=== PATIENT | female | born 1965 | race Caucasian/White ===

== ENCOUNTER 2017-03-10 12:50 | Emergency (ER) | payer BC, OTHER ==
[2017-03-10] MEDS ORDERED: MAG HYDROX/AL HYDROX/SIMETH 30 ML, HYOSCYAMINE ELIXIR 10 ML, CIMETIDINE HCL 300 MG, LID... PO STA ×4 (13:35)
[2017-03-10] MEDS ORDERED: FAMOTIDINE 20 MG/2 ML VIAL IV STA (13:38)
--- NOTE | 2017-03-10 13:43 | ED ---
General Adult HPI - General Chief complaint: Abdominal Pain Stated complaint: Chest Pain X's 3 days Time Seen by Provider: 03/10/17 13:24 Source: patient, RN notes reviewed, old records reviewed Mode of arrival: wheelchair Limitations: no limitations - History of Present Illness Initial comments: 51-year-old female with past medical history of gastric reflux presents to three -day history of abdominal pain and chest pain. Patient's pain began morning. She was arrest. Started as a burning sensation. Radiated to her back and shoulder blade. She has had these symptoms in the past, she is taken Tums and Pepcid for these symptoms. According to the patient she has stress test 3-4 years ago which was normal. Symptoms have persisted over the last 3 days prompting ER evaluation. She does have family history of cardiac disease in her mother at the age of 70. She is a nonsmoker. No history diabetes or hypertension. No history of hypercholesterolemia. patient's pain has improved at home with Pepcid. No cough. No shortness of breath. No lightheadedness or diaphoresis. Patient's pain has been constant for 3 days. - Related Data Home Medications Medication Instructions Recorded Confirmed [id number] 2 tab PO Q4HR PRN 03/10/17 03/10/17 [Excedrin] Famotidine [Pepcid AC] 10 mg PO DAILY PRN 03/10/17 03/10/17 Previous Rx's Medication Instructions Recorded Omeprazole [PriLOSEC] 20 mg PO AC-BRKFST #30 cap 03/10/17 Allergies Allergy/AdvReac Type Severity Reaction Status Date / Time Penicillins Allergy Rash/Hives Verified 03/10/17 13:56 Review of Systems ROS Statement: Those systems with pertinent positive or pertinent negative responses have been documented in the HPI. ROS Other: All systems not noted in ROS Statement are negative. Past Medical History Past Medical History: No Reported History, GERD/Reflux History of Any Multi-Drug Resistant Organisms: None Reported Past Surgical History: Orthopedic Surgery Additional Past Surgical History / Comment(s): rotator cudd surg., eye surg. as a child Past Anesthesia/Blood Transfusion Reactions: No Reported Reaction Past Psychological History: No Psychological Hx Reported Smoking Status: Former smoker Past Alcohol Use History: Occasional Past Drug Use History: None Reported General Exam Limitations: no limitations General appearance: alert, in no apparent distress Head exam: Present: atraumatic, normocephalic Eye exam: Present: normal appearance, PERRL ENT exam: Present: normal exam, mucous membranes moist Neck exam: Present: normal inspection. Absent: tenderness, meningismus Respiratory exam: Present: normal lung sounds bilaterally. Absent: respiratory distress Cardiovascular Exam: Present: regular rate, normal rhythm GI/Abdominal exam: Present: soft. Absent: distended, tenderness Extremities exam: Present: normal inspection, normal capillary refill. Absent: pedal edema Back exam: Present: normal inspection Neurological exam: Present: alert, oriented X3 Psychiatric exam: Present: normal affect, normal mood Skin exam: Present: warm, dry, intact. Absent: cyanosis, diaphoretic Course Vital Signs 03/10/17 03/10/17 12:55 12:58 Temperature 97.0 F L Pulse Rate 72 73 Respiratory 18 20 Rate Blood Pressure 127/71 120/70 O2 Sat by Pulse 100 100 Oximetry EKG Findings - EKG Comments: EKG Findings:: EKG shows sinus bradycardia with sinus arrhythmia, rate of 59, WV interval 168, QRS duration 78, QTC 382, there is no ST segment elevation or depression. Medical Decision Making - Medical Decision Making 51-year-old female presenting with burning epigastric and chest pain. This pain constant for 3 days. Does radiate to her back. She does have a history of GERD. EKG is nonischemic. Patient is concerned that this could be her heart. She has a family history of coronary artery disease in her mother at age 70. No premature coronary artery disease. Patient is no history diabetes hypertension. She is a nonsmoker. She is otherwise healthy. She is given a GI cocktail while awaiting abdominal and cardiac workup. On reevaluation she is feeling much better. Pain is significantly improved. Chest x-ray shows no acute process. Laboratory studies including CBC, CMP and cardiac enzymes are unremarkable. There is no elevation of liver enzymes, lipase normal. Troponin negative. Patient is comfortable with discharge at this time per she will follow-up with her primary care physician. She will be started on proton pump inhibitor. I do believe her symptoms are related to gastric reflux. - Lab Data Result diagrams: 03/10/17 13:30 03/10/17 13:30 Lab Results 03/10/17 03/10/17 03/10/17 Range/Units 13:30 13:30 13:30 WBC 5.8 (3.8-10.6) k/uL RBC 4.37 (3.80-5.40) m/uL Hgb 13.6 (11.4-16.0) gm/dL Hct 42.1 (34.0-46.0) % MCV 96.2 (80.0-100.0) fL MCH 31.1 (25.0-35.0) pg MCHC 32.3 (31.0-37.0) g/dL RDW 14.2 (11.5-15.5) % Plt Count 285 (150-450) k/uL Neutrophils % 59 % Lymphocytes % 27 % Monocytes % 7 % Eosinophils % 4 % Basophils % 1 % Neutrophils # 3.5 (1.3-7.7) k/uL Lymphocytes # 1.5 (1.0-4.8) k/uL Monocytes # 0.4 (0-1.0) k/uL Eosinophils # 0.3 (0-0.7) k/uL Basophils # 0.1 (0-0.2) k/uL PT (9.0-12.0) sec INR (<1.2) APTT (22.0-30.0) sec Sodium 142 (137-145) mmol/L Potassium 4.2 (3.5-5.1) mmol/L Chloride 105 (98-107) mmol/L Carbon Dioxide 25 (22-30) mmol/L Anion Gap 12 mmol/L BUN 8 (7-17) mg/dL Creatinine 0.60 (0.52-1.04) mg/dL Est GFR (MDRD) Af Amer >60 (>60 ml/min/1.73 sqM) Est GFR (MDRD) Non-Af >60 (>60 ml/min/1.73 sqM) Glucose 83 (74-99) mg/dL Calcium 9.6 (8.4-10.2) mg/dL Magnesium 2.1 (1.6-2.3) mg/dL Total Bilirubin 0.4 (0.2-1.3) mg/dL AST 20 (14-36) U/L ALT 33 (9-52) U/L Alkaline Phosphatase 81 (38-126) U/L Total Creatine Kinase 30 (30-135) U/L CK-MB (CK-2) 0.4 (0.0-2.4) ng/mL CK-MB (CK-2) Rel Index 1.3 Troponin I <0.012 (0.000-0.034) ng/mL Total Protein 7.3 (6.3-8.2) g/dL Albumin 4.4 (3.5-5.0) g/dL Amylase 49 (30-110) U/L Lipase 41 (23-300) U/L 03/10/17 Range/Units 13:30 WBC (3.8-10.6) k/uL RBC (3.80-5.40) m/uL Hgb (11.4-16.0) gm/dL Hct (34.0-46.0) % MCV (80.0-100.0) fL MCH (25.0-35.0) pg MCHC (31.0-37.0) g/dL RDW (11.5-15.5) % Plt Count (150-450) k/uL Neutrophils % % Lymphocytes % % Monocytes % % Eosinophils % % Basophils % % Neutrophils # (1.3-7.7) k/uL Lymphocytes # (1.0-4.8) k/uL Monocytes # (0-1.0) k/uL Eosinophils # (0-0.7) k/uL Basophils # (0-0.2) k/uL PT 10.7 (9.0-12.0) sec INR 1.1 (<1.2) APTT 24.0 (22.0-30.0) sec Sodium (137-145) mmol/L Potassium (3.5-5.1) mmol/L Chloride (98-107) mmol/L Carbon Dioxide (22-30) mmol/L Anion Gap mmol/L BUN (7-17) mg/dL Creatinine (0.52-1.04) mg/dL Est GFR (MDRD) Af Amer (>60 ml/min/1.73 sqM) Est GFR (MDRD) Non-Af (>60 ml/min/1.73 sqM) Glucose (74-99) mg/dL Calcium (8.4-10.2) mg/dL Magnesium (1.6-2.3) mg/dL Total Bilirubin (0.2-1.3) mg/dL AST (14-36) U/L ALT (9-52) U/L Alkaline Phosphatase (38-126) U/L Total Creatine Kinase (30-135) U/L CK-MB (CK-2) (0.0-2.4) ng/mL CK-MB (CK-2) Rel Index Troponin I (0.000-0.034) ng/mL Total Protein (6.3-8.2) g/dL Albumin (3.5-5.0) g/dL Amylase (30-110) U/L Lipase (23-300) U/L Disposition Clinical Impression: Gastric reflux Disposition: HOME SELF-CARE Condition: Good Instructions: Gastritis (ED), Gastroesophageal Reflux Disease (ED) Prescriptions: Omeprazole [PriLOSEC] 20 mg PO AC-BRKFST #30 cap Referrals: Britta Grant MD [Primary Care Provider] - 1-2 days Time of Disposition: 14:45
[2017-03-10 13:56] LABS: Basophils # (A) 0.1 k/uL (0-0.2); Basophils % (A) 1 %; CH 31.9; CHCM 33.3; Eosinophils # (A) 0.3 k/uL (0-0.7); Eosinophils % (A) 4 %; HCT 42.1 % (34.0-46.0); HDW 2.15; HGB 13.6 gm/dL (11.4-16.0); Luc % (Auto) 2; Lymphocytes # (A) 1.5 k/uL (1.0-4.8); Lymphocytes % (A) 27 %; MCH 31.1 pg (25.0-35.0); MCHC 32.3 g/dL (31.0-37.0); MCV 96.2 fL (80.0-100.0); Mean Platelet Volume 6.9; Monocytes # (A) 0.4 k/uL (0-1.0); Monocytes % (A) 7 %; Neutrophils # (A) 3.5 k/uL (1.3-7.7); Neutrophils % (A) 59 %; RBC 4.37 m/uL (3.80-5.40); RDW 14.2 % (11.5-15.5); WBC 5.8 k/uL (3.8-10.6); WBC (Perox) 5.76
--- NOTE | 2017-03-10 13:57 | XR ---
EXAMINATION TYPE: XR chest 2V DATE OF EXAM: 03/10/2017 COMPARISON: NONE HISTORY: Shortness of breath TECHNIQUE: Frontal and lateral views of the chest are obtained. FINDINGS: Scattered senescent parenchymal changes noted. Hyperinflation compatible with COPD. No evidence for infiltrate. No evidence for atelectasis. Heart size is stable. Mediastinal structures are stable and grossly unremarkable. No evidence for hilar prominence. Degenerative changes dorsal spine. IMPRESSION: 1. No evidence for acute pulmonary disease.
[2017-03-10 14:06] LABS: ALT 33 U/L (9-52); AST 20 U/L (14-36); Alkaline Phosphatase 81 U/L (38-126); Amylase 49 U/L (30-110); Anion Gap 12 mmol/L; Blood Urea Nitrogen 8 mg/dL (7-17); Calcium 9.6 mg/dL (8.4-10.2); Carbon Dioxide 25 mmol/L (22-30); Chloride 105 mmol/L (98-107); Glucose 83 mg/dL (74-99); Magnesium 2.1 mg/dL (1.6-2.3); Non-African American GFR(MDRD) >60 (>60 ml/min/1.73 sqM); Potassium 4.2 mmol/L (3.5-5.1); Sodium 142 mmol/L (137-145); Total Bilirubin 0.4 mg/dL (0.2-1.3); Total Protein 7.3 g/dL (6.3-8.2)
[2017-03-10 14:16] LABS: Creatine Kinase 30 U/L (30-135)
[2017-03-10 14:18] LABS: INR 1.1 (<1.2); Prothrombin Time 10.7 sec (9.0-12.0)
[2017-03-10 14:29] LABS: Creatine Kinase MB 0.4 ng/mL (0.0-2.4); Troponin I <0.012 ng/mL (0.000-0.034)
[2017-03-10 15:17] VITALS: BP 115/64; PULSE 62; RESP 17; TEMP 97.4
== END 2017-03-10 15:20 | disposition home or self-care (01) ==
LOC: EC 12:50
DX: K21.9 Gastro-esophageal reflux disease without esophagitis (principal); M54.9 Dorsalgia, unspecified; Z87.891 Personal history of nicotine dependence; Z88.0 Allergy status to penicillin; Z82.49 Family history of ischemic heart disease and other diseases of the circulatory system
CPT/HCPCS: 36415; 71020; 80053; 82150; 82550; 82553; 83690; 83735; 84484; 85025; 85610; 85730; 93005; 96374; 99284

== ENCOUNTER → 2017-04-02 | Outpatient (CLI) | payer BC, OTHER ==
--- NOTE | 2017-04-02 09:15 | NM ---
Nuclear medicine hepatobiliary scan. HISTORY: Pain. DOSAGE: The patient received 8 ounces and ensure plus and 5.5 mCi of Technetium 99m Choletec. FINDINGS: There is normal hepatic extraction. The gallbladder is seen by 20 minutes. There is bilia ry to bowel clearance by 50 minutes. Ejection fraction is 46%. IMPRESSION: 1. No evidence of cholecystitis. 2. Ejection fraction 46%
== END | disposition home or self-care (01) ==
LOC: RADNMMAIN 06:48
PROVIDERS: ATTEND Internal Medicine
DX: R10.11 Right upper quadrant pain (principal)
CPT/HCPCS: 78226; A9537

== ENCOUNTER 2020-08-13 17:24 | Emergency (ER) | payer BC ==
[2020-08-13] MEDS ORDERED: ASPIRIN 81 MG PO STA (18:03)
--- NOTE | 2020-08-13 18:05 | ED ---
General Adult HPI - General Chief complaint: Dizziness Stated complaint: near syncope, chest pain, sent by [facility] Time Seen by Provider: 08/13/20 17:25 Source: patient, RN notes reviewed, old records reviewed Mode of arrival: ambulatory Limitations: no limitations - History of Present Illness Initial comments: This is a 55-year-old female presents emergency Department complaining of a near syncopal episode yesterday. Patient states she felt kind of nauseous yesterday and then she went to the bathroom or walk on the bathroom she became very ligh theaded and thought she could pass out and eventually yelled for laid down and after that she was extremely thirsty and drank quite a bit of water and began feeling better. Patient also states that most of yesterday she had some central chest pressure that was mild but it was there most of the day. Patient denies any difficulty breathing patient denies any radiation of the pain. Patient denies any diaphoretic episodes. Patient states she has no diabetes no high blood pressure and no cholesterol elevation. Patient denies any smoking history. Patient states she does have a family history of heart disease. She states she's felt fine all day today. Patient immediately indicated to me that she did not want to stay overnight. - Related Data Home Medications Medication Instructions Recorded Confirmed [id number]-[id number] 2 tab PO Q4HR PRN 03/10/17 03/10/17 [Excedrin] Famotidine [Pepcid AC] 10 mg PO DAILY PRN 03/10/17 03/10/17 Previous Rx's Medication Instructions Recorded Omeprazole [PriLOSEC] 20 mg PO AC-BRKFST #30 cap 03/10/17 Allergies Allergy/AdvReac Type Severity Reaction Status Date / Time clarithromycin [From Biaxin] Allergy Nausea Verified 08/13/20 17:29 Penicillins Allergy Rash/Hives Verified 08/13/20 17:29 Review of Systems ROS Statement: Those systems with pertinent positive or pertinent negative responses have been documented in the HPI. ROS Other: All systems not noted in ROS Statement are negative. Past Medical History Past Medical History: No Reported History, GERD/Reflux History of Any Multi-Drug Resistant Organisms: None Reported Past Surgical History: Orthopedic Surgery Additional Past Surgical History / Comment(s): rotator cudd surg., eye surg. as a child Past Anesthesia/Blood Transfusion Reactions: No Reported Reaction Past Psychological History: No Psychological Hx Reported Smoking Status: Never smoker Past Alcohol Use History: Occasional Past Drug Use History: None Reported General Exam - General Exam Comments Initial Comments: GENERAL: Patient is well-developed and well-nourished. Patient is nontoxic and well- hydrated and is in no acute distress. ENT: Neck is soft and supple. No significant lymphadenopathy is noted. Oropharynx is clear. Moist mucous membranes. Neck has full range of motion without eliciting any pain. EYES: The sclera were anicteric and conjunctiva were pink and moist. Extraocular movements were intact and pupils were equal round and reactive to light. Eyelids were unremarkable. PULMONARY: Unlabored respirations. Good breath sounds bilaterally. No audible rales rhonchi or wheezing was noted. CARDIOVASCULAR: There is a regular rate and rhythm without any murmurs gallops or rubs. ABDOMEN: Soft and nontender with normal bowel sounds. SKIN: Skin is clear with no lesions or rashes and otherwise unremarkable. NEUROLOGIC: Patient is alert and oriented x3. Cranial nerves II through XII are grossly intact. Motor and sensory are also intact. Normal speech, volume and content. Symmetrical smile. MUSCULOSKELETAL: Normal extremities with adequate strength and full range of motion. No lower extremity swelling or edema. No calf tenderness. LYMPHATICS: No significant lymphadenopathy is noted PSYCHIATRIC: Normal psychiatric evaluation. Limitations: no limitations Course Vital Signs 08/13/20 08/13/20 17:27 18:30 Temperature 97.5 F L 97.9 F Pulse Rate 74 78 Respiratory 20 16 Rate Blood Pressure 130/85 133/84 O2 Sat by Pulse 99 99 Oximetry Medical Decision Making - Medical Decision Making EKG shows normal sinus rhythm at 77 bpm HI interval 288 QRSs 84 QT interval 354 QTC is 400. Patient's EKG shows no ST segment elevation or depression. Chest x-ray shows no acute abnormalities. I recommended admission to the patient the patient wanted to follow-up as an outpatient in because patient has had no pain since yesterday and her troponin was negative I did discharge the patient home for follow-up as an outpatient. - Lab Data Result diagrams: 08/13/20 18:30 08/13/20 18:30 Lab Results 08/13/20 08/13/20 08/13/20 Range/Units 18:30 18:30 18:30 WBC 4.1 (3.8-10.6) k/uL RBC 4.38 (3.80-5.40) m/uL Hgb 13.5 (11.4-16.0) gm/dL Hct 41.4 (34.0-46.0) % MCV 94.5 (80.0-100.0) fL MCH 30.9 (25.0-35.0) pg MCHC 32.7 (31.0-37.0) g/dL RDW 13.3 (11.5-15.5) % Plt Count 211 (150-450) k/uL MPV 6.8 Neutrophils % 46 % Lymphocytes % 40 % Monocytes % 7 % Eosinophils % 3 % Basophils % 1 % Neutrophils # 1.9 (1.3-7.7) k/uL Lymphocytes # 1.6 (1.0-4.8) k/uL Monocytes # 0.3 (0-1.0) k/uL Eosinophils # 0.1 (0-0.7) k/uL Basophils # 0.0 (0-0.2) k/uL PT 10.9 (9.0-12.0) sec INR 1.0 (<1.2) APTT 23.1 (22.0-30.0) sec Sodium 139 (137-145) mmol/L Potassium 3.6 (3.5-5.1) mmol/L Chloride 104 (98-107) mmol/L Carbon Dioxide 29 (22-30) mmol/L Anion Gap 6 mmol/L BUN 14 (7-17) mg/dL Creatinine 0.53 (0.52-1.04) mg/dL Est GFR (CKD-EPI)AfAm >90 (>60 ml/min/1.73 sqM) Est GFR (CKD-EPI)NonAf >90 (>60 ml/min/1.73 sqM) Glucose 93 (74-99) mg/dL Calcium 8.6 (8.4-10.2) mg/dL Magnesium 2.2 (1.6-2.3) mg/dL Total Bilirubin 0.3 (0.2-1.3) mg/dL AST 35 (14-36) U/L ALT 28 (4-34) U/L Alkaline Phosphatase 72 (38-126) U/L Troponin I (0.000-0.034) ng/mL Total Protein 6.7 (6.3-8.2) g/dL Albumin 3.9 (3.5-5.0) g/dL 08/13/20 Range/Units 18:30 WBC (3.8-10.6) k/uL RBC (3.80-5.40) m/uL Hgb (11.4-16.0) gm/dL Hct (34.0-46.0) % MCV (80.0-100.0) fL MCH (25.0-35.0) pg MCHC (31.0-37.0) g/dL RDW (11.5-15.5) % Plt Count (150-450) k/uL MPV Neutrophils % % Lymphocytes % % Monocytes % % Eosinophils % % Basophils % % Neutrophils # (1.3-7.7) k/uL Lymphocytes # (1.0-4.8) k/uL Monocytes # (0-1.0) k/uL Eosinophils # (0-0.7) k/uL Basophils # (0-0.2) k/uL PT (9.0-12.0) sec INR (<1.2) APTT (22.0-30.0) sec Sodium (137-145) mmol/L Potassium (3.5-5.1) mmol/L Chloride (98-107) mmol/L Carbon Dioxide (22-30) mmol/L Anion Gap mmol/L BUN (7-17) mg/dL Creatinine (0.52-1.04) mg/dL Est GFR (CKD-EPI)AfAm (>60 ml/min/1.73 sqM) Est GFR (CKD-EPI)NonAf (>60 ml/min/1.73 sqM) Glucose (74-99) mg/dL Calcium (8.4-10.2) mg/dL Magnesium (1.6-2.3) mg/dL Total Bilirubin (0.2-1.3) mg/dL AST (14-36) U/L ALT (4-34) U/L Alkaline Phosphatase (38-126) U/L Troponin I <0.012 (0.000-0.034) ng/mL Total Protein (6.3-8.2) g/dL Albumin (3.5-5.0) g/dL Disposition Clinical Impression: Chest pain, Near syncope Disposition: HOME SELF-CARE Condition: Good Instructions (If sedation given, give patient instructions): Analgesic (On the skin), Chest Pain (ED) Additional Instructions: Patient should follow-up with her primary medical care doctor. patient should take a aspirin every day Is patient prescribed a controlled substance at d/c from ED?: No Referrals: Britta Grant MD [Primary Care Provider] - 1-2 days Time of Disposition: 19:42
[2020-08-13 18:31] VITALS: BP 133/84; PULSE 78; RESP 16; TEMP 97.9
[2020-08-13 18:37] LABS: Basophils % (A) 1 %; Eosinophils # (A) 0.1 k/uL (0-0.7); Eosinophils % (A) 3 %; HCT 41.4 % (34.0-46.0); HGB 13.5 gm/dL (11.4-16.0); Lymphocytes # (A) 1.6 k/uL (1.0-4.8); Lymphocytes % (A) 40 %; MCH 30.9 pg (25.0-35.0); MCHC 32.7 g/dL (31.0-37.0); MCV 94.5 fL (80.0-100.0); Mean Platelet Volume 6.8; Monocytes # (A) 0.3 k/uL (0-1.0); Monocytes % (A) 7 %; Neutrophils # (A) 1.9 k/uL (1.3-7.7); Neutrophils % (A) 46 %; Platelet Count 211 k/uL (150-450); RBC 4.38 m/uL (3.80-5.40); RDW 13.3 % (11.5-15.5); WBC 4.1 k/uL (3.8-10.6)
[2020-08-13 18:47] LABS: Partial Thromboplastin Time 23.1 sec (22.0-30.0); Prothrombin Time 10.9 sec (9.0-12.0)
[2020-08-13 18:50] LABS: ALT 28 U/L (4-34); AST 35 U/L (14-36); African American GFR (CKD) >90 (>60 ml/min/1.73 sqM); Albumin 3.9 g/dL (3.5-5.0); Alkaline Phosphatase 72 U/L (38-126); Anion Gap 6 mmol/L; Blood Urea Nitrogen 14 mg/dL (7-17); Calcium 8.6 mg/dL (8.4-10.2); Carbon Dioxide 29 mmol/L (22-30); Chloride 104 mmol/L (98-107); Glucose 93 mg/dL (74-99); Magnesium 2.2 mg/dL (1.6-2.3); Non-African American GFR(CKD) >90 (>60 ml/min/1.73 sqM); Potassium 3.6 mmol/L (3.5-5.1); Sodium 139 mmol/L (137-145); Total Bilirubin 0.3 mg/dL (0.2-1.3); Total Protein 6.7 g/dL (6.3-8.2)
--- NOTE | 2020-08-13 18:53 | XR ---
EXAMINATION TYPE: XR chest 2V DATE OF EXAM: 08/13/2020 COMPARISON: 03/10/2017. HISTORY: Chest pain and dizziness. TECHNIQUE: Frontal and lateral views of the chest are obtained. FINDINGS: There is no focal air space opacity, pleural effusion, or pneumothorax seen. The cardiac silhouette size is within normal limits. The osseous structures are intact. IMPRESSION: No acute cardiopulmonary process.
== END 2020-08-13 20:02 | disposition home or self-care (01) ==
LOC: EC 17:24
DX: R55 Syncope and collapse (principal); R07.9 Chest pain, unspecified; R42 Dizziness and giddiness; K21.9 Gastro-esophageal reflux disease without esophagitis; Z79.899 Other long term (current) drug therapy
CPT/HCPCS: 36415; 71046; 80053; 83735; 84484; 85025; 85610; 85730; 93005; 99284

== ENCOUNTER → 2025-01-06 | Outpatient (CLI) | payer BC ==
--- NOTE | 2025-01-06 16:07 | XR ---
EXAMINATION TYPE: XR shoulder complete RT DATE OF EXAM: 01/06/2025 3:54 PM COMPARISON: None CLINICAL INDICATION: Female, 59 years old with history of [id number] ACUTE PAIN OF R SHOULDER; [facility], pain TECHNIQUE: 3 views FINDINGS: Moderate degenerative changes joint with marginal spurring and joint space narrowing. Prominent bony irregularity at the greater tuberosity and large inferior acromial spur. No acute fracture, subluxati on, dislocation. IMPRESSION: 1. Large inferior acromial spur can be an indirect sign of underlying full-thickness rotator cuff tea r. MRI is clinically indicated. 2. Moderate AC joint OA with prominent marginal spurring. 3. No acute osseous abnormalities seen. [facility], Workstation: [facility], 01/06/2025 4:05 PM
== END | disposition home or self-care (01) ==
LOC: LABWHC1 15:33
PROVIDERS: ATTEND Internal Medicine
DX: M19.011 Primary osteoarthritis, right shoulder (principal)